=== PATIENT | male | born 1965 | race Caucasian/White ===

== ENCOUNTER → 2017-03-08 | Outpatient (REF) | LOC: M SMT 13:13 | DX: Z02.71 Encounter for disability determination (principal) ==

== ENCOUNTER 2023-09-14 10:35 | Emergency (ER) | payer BC, MEDICARE ==
[~2023-09-14] VITALS: Ht 177.8 cm; Wt 101.8 kg
[2023-09-14 10:44] VITALS: TEMP 97.6
[2023-09-14 11:37] LABS: CK-MB VALUE MASS 4.3 NG/ML (<3.6)
[2023-09-14 11:38] LABS: BASO % 0.4 % (0.0-1.0); BLOOD UREA NITROGEN 21 MG/DL (9-23); CALCIUM LEVEL 9.1 MG/DL (8.5-10.1); CARBON DIOXIDE LEVEL 27 MMOL/L (20-31); CHLORIDE LEVEL 106 MMOL/L (98-107); CPK CREATINE PHOSPHOKINASE 359 U/L (46-171); CREATININE FOR GFR 1.05 MG/DL (0.70-1.30); EOS # 0.2 10^3/uL (0.0-0.5); EOS % 1.4 % (0.0-3.0); GLOMERULAR FILTRATION RATE > 60.0 (>56); GLUCOSE, FASTING 94 MG/DL (60-100); HEMATOCRIT 42.9 % (42.0-52.0); HEMOGLOBIN 14.8 g/dl (13.5-17.5); LYMPH # 1.6 10^3/uL (1.5-5.0); MB/CK RELATIVE INDEX 1.19 (< OR =4); MEAN CORPUSCULAR HGB CONC 34.5 g/dl (32.0-36.5); MEAN CORPUSCULAR VOLUME 92.7 fl (80.0-96.0); MONO # 0.7 10^3/uL (0.0-0.8); MONO % 6.3 % (2.0-8.0); NEUTROPHILS # 8.1 10^3/uL (1.5-8.5); NEUTROPHILS % 76.3 % (36.0-66.0); PLATELET COUNT, AUTOMATED 183 10^3/uL (150-450); POTASSIUM SERUM 4.5 MMOL/L (3.5-5.1); RED BLOOD COUNT 4.63 10^6/uL (4.30-6.10); SODIUM LEVEL 140 MMOL/L (136-145); WHITE BLOOD COUNT 10.7 10^3/uL (4.0-10.0)
[2023-09-14 11:40] LABS: THYROID STIMULATING HORMONE 1.636 uIU/ML (0.55-4.78)
[2023-09-14] MEDS ORDERED: ISOVUE-370 76% 100ML VIAL As Ordered ONE (13:12)
[2023-09-14] MEDS ORDERED: HOLTER MONITOR XX (15:55)
[2023-09-14 17:15] VITALS: BP 150/98; O2SAT 98
== END 2023-09-14 17:23 | disposition home or self-care (01) ==
LOC: M ED 10:35 → EDBD 10:35 → M ED 17:23
DX: R55 Syncope and collapse (principal); I71.20 Thoracic aortic aneurysm, without rupture, unspecified; I10 Essential (primary) hypertension; I45.10 Unspecified right bundle-branch block; R00.1 Bradycardia, unspecified; F12.10 Cannabis abuse, uncomplicated; F10.10 Alcohol abuse, uncomplicated; Z86.79 Personal history of other diseases of the circulatory system; Z88.5 Allergy status to narcotic agent; Z88.6 Allergy status to analgesic agent
CPT/HCPCS: 36415; 71275; 80048; 82550; 82553; 83735; 84443; 84484; 85025; 93005; 93041; 94760; 99285; Q9967

== ENCOUNTER → 2023-09-14 | Outpatient (CLI) | payer MEDICARE ==
[~2023-09-14] MED LIST: HOLTER MONITOR XX
== END ==
LOC: M EKG 17:45
PROVIDERS: ATTEND Emergency Medicine
DX: R55 Syncope and collapse (principal)